=== PATIENT | male | born 1975 | race Caucasian/White ===

== ENCOUNTER → 2017-11-18 | Outpatient (CLI) | payer MEDICAID ==
--- NOTE | 2017-11-18 10:30 | RADIOLOGY REPORT (SQ) ---
EXAM DESCRIPTION: T SPINE AP/LAT COMPLETED DATE/TIME: 11/18/2017 9:36 am REASON FOR STUDY: PAIN IN THORACIC SPINE M54.6 PAIN IN THORACIC SPINE M95.4 ACQUIRED DEFORMITY OF CHEST AND RIB COMPARISON: None. NUMBER OF VIEWS: Two views. TECHNIQUE: AP and lateral radiographic images acquired of the thoracic spine. LIMITATIONS: None. FINDINGS: MINERALIZATION: Normal. ALIGNMENT: Normal. No scoliosis. VERTEBRAE: There is very mild anterior wedging of T8. This is less than 20%. DISCS: No significant loss of height or significant narrowing. No large osteophytes. HARDWARE: None in the spine. MEDIASTINUM AND SOFT TISSUES: Normal heart size and aortic contour. No soft tissue abnormality. VISUALIZED LUNG LY: Clear. OTHER: No other significant finding. IMPRESSION: Less than 20% narrowing of the T8 vertebral body anteriorly consistent with compression fracture. Age is indeterminate. TECHNICAL DOCUMENTATION: JOB ID: [id number] [employer]- All Rights Reserved Reading location - IP/workstation name: [email or web address]
--- NOTE | 2017-11-18 10:35 | RADIOLOGY REPORT (SQ) ---
EXAM DESCRIPTION: STERNUM COMPLETED DATE/TIME: 11/18/2017 9:36 am REASON FOR STUDY: ACQUIRED DEFORMITY OF CHEST AND RIB M54.6 PAIN IN THORACIC SPINE M95.4 ACQUIRED DEFORMITY OF CHEST AND RIB COMPARISON: None. NUMBER OF VIEWS: Two views. TECHNIQUE: Lateral and AP and/or oblique views of the sternum. LIMITATIONS: None. FINDINGS: There is no acute or significant bone, joint or soft tissue abnormality. OTHER: No other significant finding. IMPRESSION: NEGATIVE STUDY OF THE STERNUM. TECHNICAL DOCUMENTATION: JOB ID: [id number] [employer]- All Rights Reserved Reading location - IP/workstation name: [email or web address] [facility]ORACIC PHYSICIAN[facility] [place]
== END ==
LOC: OD 09:09
PROVIDERS: ATTEND Nurse Practitioner Family
DX: M54.6 Pain in thoracic spine (principal); M95.4 Acquired deformity of chest and rib
CPT/HCPCS: 71120; 72070